=== PATIENT | female | born 1965 | race Asian ===

== ENCOUNTER 2024-01-08 09:51 | Observation (INO) | payer BC ==
[2024-01-08 10:31] LABS: EPITHELIAL CELLS 0-5 /hpf
[2024-01-08 11:10] LABS: ACTIVATED PTT 30.6 SECONDS (25.2-36.5)
[2024-01-08 11:24] LABS: HEMATOCRIT 42.5 % (32.4-45.2); HEMOGLOBIN 14.4 G/dL (10.7-15.3); MCH 29.8 pg (25.7-33.7); MCHC 33.8 g/dl (32.0-36.0); MEAN CELL VOLUME 88.2 fl (80-96); MEAN PLT VOLUME 7.5 fl (7.5-11.1); PLATELET COUNT 356.4 10^3/uL (134-434); RBC 4.82 10^6/uL (3.60-5.2); RDW 14.9 % (11.6-15.6); WHITE BLOOD COUNT 14.1 10^3/uL (4.0-10.8)
[2024-01-08 11:26] LABS: INR 0.93 (0.83-1.09); PROTHROMBIN TIME (PATIENT) 10.8 SEC (9.7-13.0)
[2024-01-08] MEDS ORDERED: ACETAMINOPHEN 325 MG TABLET (FP) ONE (12:15)
[2024-01-08] MEDS: ACETAMINOPHEN 325 MG TABLET (FP) PO ONE (12:28)
[2024-01-08 12:36] LABS: PLATELET ESTIMATE ADEQUATE
[2024-01-08 12:59] LABS: POTASSIUM 3.6 mmol/L (3.5-5.1)
[2024-01-08 13:03] LABS: ALBUMIN 3.9 g/dl (3.4-5.0); CALCIUM 9.8 mg/dL (8.5-10.1)
[2024-01-08 13:07] LABS: CREATININE 0.9 mg/dL (0.55-1.3)
[2024-01-08 13:09] LABS: BILIRUBIN,TOTAL 0.6 mg/dL (0.2-1); TOT PROT 8.2 g/dl (6.4-8.2)
[2024-01-08 14:08] VITALS: BMI 26.4
[2024-01-08] MEDS ORDERED: KETOROLAC TROMETHAMINE 30 MG/1 ML VIAL IVPUSH PRN (14:42)
[2024-01-08] MEDS ORDERED: ACETAMINOPHEN 325 MG TABLET (FP) PO PRN (14:42)
[2024-01-08 18:48] VITALS: RESP 18
[2024-01-08] MEDS: INSULIN ASPART SLIDING SCALE (NOVOLOG) 1 VIAL SQ SCH (22:40)
[2024-01-09] MEDS: LISINOPRIL 20 MG TABLET PO SCH (09:05)
[2024-01-09] MEDS: amLODIPine BESYLATE 10 MG TABLET (FP) PO SCH (09:05)
[2024-01-09] MEDS: PANTOPRAZOLE 40 MG TABLET PO SCH (09:05)
[2024-01-09 16:12] VITALS: BP 122/68; PULSE 73; TEMP 98
[2024-01-09] MEDS ORDERED: ROSUVASTATIN CA 10 MG TABLET PO SCH (22:00)
[2024-01-10] MEDS ORDERED: ASPIRIN COATED 81 MG TABLET.EC PO SCH (10:00)
== END 2024-01-09 17:46 | disposition home or self-care (01) ==
LOC: FER 09:51 → FM/S 12:24 → UNDOADMOB 12:24 → FM/S 13:02 → INTOOBSV 14:17 → OBSVTOIN 14:17 → FM/S 01-09 14:29
PROVIDERS: ADMIT Family Medicine; ATTEND Family Medicine
PROC: 3E033NZ Introduction of Analgesics, Hypnotics, Sedatives into Peripheral Vein, Percutaneous Approach (ICD-10-PCS; principal; 2023-12-27)
PROC: 3E023NZ Introduction of Analgesics, Hypnotics, Sedatives into Muscle, Percutaneous Approach (ICD-10-PCS; 2023-12-27)
PROC: 3E0337Z Introduction of Electrolytic and Water Balance Substance into Peripheral Vein, Percutaneous Approach (ICD-10-PCS; 2023-12-27)
DX: C67.9 Malignant neoplasm of bladder, unspecified (principal); C78.5 Secondary malignant neoplasm of large intestine and rectum; J11.1 Influenza due to unidentified influenza virus with other respiratory manifestations; Z86.74 Personal history of sudden cardiac arrest; D64.9 Anemia, unspecified; I11.0 Hypertensive heart disease with heart failure; I25.10 Atherosclerotic heart disease of native coronary artery without angina pectoris; E78.5 Hyperlipidemia, unspecified; Z88.0 Allergy status to penicillin; R32 Unspecified urinary incontinence; R53.81 Other malaise; N17.9 Acute kidney failure, unspecified; I21.4 Non-ST elevation (NSTEMI) myocardial infarction; K92.2 Gastrointestinal hemorrhage, unspecified
CPT/HCPCS: 0241U-QW; 36415; 70450-TC; 70496-TC; 70498-TC; 70551-TC; 71046-TC-FY; 73130-TC-LT-FY; 80053; 80061; 81003; 81015; 82962; 83036; 84439; 84443; 84484; 85025; 85610; 85730; 87086; 93005; 93306-TC; 93880-TC; 97116-GP; 97161-GP; 99285-25; G0378